=== PATIENT | female | born 1990 | race Caucasian/White ===

== ENCOUNTER 2021-10-15 16:46 | Emergency (ER) | payer BC ==
[~2021-10-15] VITALS: Ht 162.6 cm; Wt 88.5 kg
[~2021-10-15 16:46] MED LIST: BACTRIM DS TAB1 EAC1 PO; IBUPROFEN 800800 MG PO; NORCO 5-325 TA1 EACH PO; TRAMADOL 50 MG50 MG PO; ULTRAM 50MG TAB50 MG PO; VALIUM2 MG PO; WELLBUTRIN XL150 MG PO; ZOFRAN4 MG PO
[2021-10-15] MEDS ORDERED: ABILIFY 5 MG TAB5 M1 PO (17:08)
[2021-10-15] MEDS ORDERED: TRAZODONE HCL50 MG PO (17:08)
[2021-10-15 17:30] LABS: INFLUENZA A ANTIGEN Negative (Negative); INFLUENZA B ANTIGEN Negative (Negative)
[2021-10-15] MEDS ORDERED: APAP W/CODEINE1 TA2 PO (18:19)
[2021-10-15] MEDS ORDERED: TESSALON PERLE100 MG PO (18:19)
[2021-10-15] MEDS ORDERED: PROAIR HFA8.5 GM INH (18:19)
[2021-10-15 18:35] VITALS: BP 116/76
== END 2021-10-15 18:36 | disposition home or self-care (01) ==
LOC: M.ERS 16:46
PROVIDERS: Family Medicine
DX: R06.02 Shortness of breath (principal); Z20.822 Contact with and (suspected) exposure to COVID-19; R50.9 Fever, unspecified; R42 Dizziness and giddiness; F31.9 Bipolar disorder, unspecified; F41.9 Anxiety disorder, unspecified; Z98.51 Tubal ligation status; Z79.899 Other long term (current) drug therapy; Z88.1 Allergy status to other antibiotic agents